=== PATIENT | male | born 1945 | race Caucasian/White ===

== ENCOUNTER 2023-01-14 11:39 | Emergency (ER) | payer MEDICARE, BC ==
[2023-01-14] MEDS ORDERED: Sodium Chloride 0.9% 10 ML Syringe FLUSH PRN (11:48)
[2023-01-14] MEDS ORDERED: Acetaminophen 500 MG Tab PO ONE (12:08)
[2023-01-14] MEDS ORDERED: Sodium Chloride 0.9% 1,000 ML IV ONE ×4 (12:08→14:11)
[2023-01-14] MEDS ORDERED: Ketorolac 30 MG/ML SDV IVPUSH ONE (12:08)
[2023-01-14] MEDS ORDERED: Iopamidol 755 Mg/ML 100 ML Bottle IVPUSH ONE (12:26)
[2023-01-14] MEDS ORDERED: Piperacillin/Tazobactam 4.5 GM in Sodium Chloride 0.9% 100 ML IV ONE (12:39)
[2023-01-14 12:41] LABS: ANION GAP 20.6 mEq/L (7-13); CHLORIDE,CL 95 mmol/L (98-107); SODIUM,NA 132 mmol/L (136-145)
[2023-01-14 12:42] LABS: ESTIMATED GFR 18 mL/min (>=60)
[2023-01-14] MEDS ORDERED: Norepinephrine 4 MG in Dextrose 5% in Water 246 ML IV SCH ×2 (13:00)
[2023-01-14 13:02] LABS: CORONAVIRUS COVID-19 NAA NEGATIVE (NEGATIVE); RESPIRATORY SYNCYTIAL VIR NAA NEGATIVE (NEGATIVE)
== END 2023-01-14 15:26 ==
LOC: DL.ED 11:39
DX: A41.9 Sepsis, unspecified organism (principal); N39.0 Urinary tract infection, site not specified; Z20.822 Contact with and (suspected) exposure to COVID-19
CPT/HCPCS: 0241U; 36415; 70450; 70496; 70498; 71045; 80053; 81001; 82140; 82947; 83605; 83735; 84443; 85025; 86140; 87040; 87086; 87088; 87186; 93005; 96361; 96365; 96366; 96367; 96375; 99285; A9270; J1885; J2543; J3370; J3490; J7030; J7040; J7050; Q9967; 87077; 93010